=== PATIENT | female | born 1930 | race Caucasian/White ===

== ENCOUNTER 2018-10-16 05:17 | Inpatient (IN) ==
--- NOTE | 2018-10-14 17:29 | MH ---
cc: Kamron Peguero MD DATE OF ADMISSION: 10/16/2018 ADMITTING DIAGNOSIS: Osteoarthritis, left knee. COMORBIDITIES: Hypertension, elevated cholesterol, early stages of memory deficit and octogenarian. HISTORY OF PRESENT ILLNESS: The patient is an 88-year-old white female who has experienced at least 8 months of pain involving her left knee. She had noted the gradual onset of her symptoms as she was getting out of bed in anticipation of using the bathroom. There was no direct injury to her knee nor did she fall, but she remains symptomatic with pain, especially about the lateral aspect of her knee for which she was later seen by her primary care physician. At that time, she was encouraged to proceed with orthopedic evaluation and was subsequently seen by the undersigned physician in April of this past year. At that time, the patient described pain, especially related to weightbearing activities, but being reasonably comfortable with periods of rest. She had not experienced any previous history of problems involving her left knee. Her x-ray studies revealed no acute bony abnormality. The patient was diagnosed as having an iliotibial band syndrome for which she was treated with a local steroid injection and thereafter followed on an outpatient basis. She had initially noted some trend of improvement and elected to continue with her conservative modalities, but unfortunately experienced recurrent pain and swelling about the knee for which she again returned to her primary care physician, who again recommended orthopedic followup. At that time, the patient received an intraarticular steroid injection and continued to be followed on an outpatient basis. She described lingering pain thereafter that was interfering with all ambulatory activities, and thus, a recommendation was made to proceed with an MRI scan. Subsequent diagnostic testing in this regard identified severe osteochondral abnormalities of the lateral compartment including a large area of subchondral bony collapse with flattening of the contour of the subarticular bone and a full-thickness chondral loss as well as severe, associated subchondral bony edema of the lateral femoral condyle. There was a large area of full-thickness chondral defect of the lateral tibial condyle as well as a large complex tear involving the lateral meniscus. The above was associated with a large joint effusion, associated with a moderate-sized Patel's cyst. The patient had remained symptomatic with pain about her left knee and thus returned to the office in followup disposition, at which time the findings of the scan were reviewed and various treatment options discussed. The pros and cons of continued conservative management versus operative intervention that might involve arthroscopic surgery versus total knee arthroplasty were outlined in detail. The pluses and minuses of each surgical procedure was reviewed. Emphasis was made regarding the fact that the decision to proceed with surgery would be left entirely to the patient's discretion but it was the recommendation of the underlying physician that the patient would in all likelihood appreciate a more favorable long-term benefit from total knee replacement. The patient considered her options in this regard and subsequently returned to the office more recently, expressing her desire to proceed with total knee arthroplasty as discussed. In compliance with her wishes, she was scheduled for admission at this time in order that the above be accomplished. PAST MEDICAL HISTORY, HOSPITALIZATIONS AND SURGERIES: Acromioplasty of the right shoulder with mini open rotator cuff repair, skin grafting of her left lower extremity following a history of trauma, tonsillectomy and colonoscopy for history of rectal bleeding. The patient's medical illnesses include hypertension and elevated cholesterol, as well as early stages of memory loss. CURRENT MEDICATIONS: 1. Amlodipine 10-20 mg daily. 2. Celebrex 200 mg daily. 3. Diclofenac as an alternative to arthritic pain. 4. Flagyl 375 mg is recent treatment. 5. Fluocinolone cream for skin rash. 6. Ibuprofen 800 mg p.r.n. for back pain. 7. Memantine 10 mg twice daily. 8. Multivitamin tablet daily. 9. Simvastatin 20 mg daily. 10. Zofran 4 mg 3 times daily p.r.n. nausea. ALLERGIES: THE PATIENT DESCRIBES DRUG ALLERGIES TO DONEPEZIL AND OXYCODONE, BOTH OF WHICH HAVE BEEN ASSOCIATED WITH HALLUCINATIONS. SHE SUGGESTS THE POSSIBILITY OF TERRAMYCIN BEING ASSOCIATED WITH RASH FORMATION, BUT IS SOMEWHAT VAGUE IN THIS REGARD. SHE ALSO APPARENTLY HAS A DRUG ALLERGY TO MYCIN-TYPE DRUGS. REVIEW OF SYSTEMS: She wears glasses. No headache, seizure or syncope. No sinus congestion or epistaxis. Auditory acuity intact. No tinnitus. No bleeding gums or dysphagia. She has complete dentures. No cough, shortness of breath, upper respiratory infection, pneumonia, or tuberculosis. No angina or heart disease, medically managed for hypertension. Appetite good. Occasional constipation treated with wlby-xod-bbksacy products. No hepatitis. No gallbladder disease, ulcers or hemorrhoids. There is a history of rectal bleeding. No abnormality apparently identified. No urinary tract infection, no kidney stones, no history of fractures. No psychiatric intervention. Remaining review of systems is unremarkable and noncontributory. FAMILY HISTORY: The patient had been 24 years as a second marriage, but her recently at 89 years of age. She has 2 living daughters, both indicated to be in good health. One son at 54 years of age secondary to an abdominal aortic aneurysm. FAMILY HISTORY: Positive for heart disease and cancer of the throat. 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 She completed a BS degree. She denies active use of tobacco since 1975 but had been less than a 1 pack per day user for approximately 17 years prior to that time. Ethanol consumption in the form of 2 scotch cocktails nightly. PHYSICAL EXAMINATION: VITAL SIGNS: Height 5 feet 6-1/2 inches, weight 125 pounds. GENERAL: Alert, oriented, and responsive 88-year-old white female who sits quietly upon the examination table with no apparent distress. HEAD, EARS, EYES, NOSE AND THROAT: Pupils are equally round and reactive to light. Extraocular movements full. Sclerae are clear. External nares clear. External auditory canals clear. Edentulous. Mucous membranes pink and moist. Pharynx clear. NECK: Supple. Active range of motion. No associated pain. Carotid pulse is palpable bilaterally. Trachea midline. Thyroid without thyroid enlargement. LUNGS: Clear to auscultation and percussion. No CVA tenderness. No discomfort throughout the dorsolumbar spine. HEART: Regular rate and rhythm. No murmur or gallop. ABDOMEN: Soft, nontender, bowel sounds present. PELVIC: Per primary care physician. EXTREMITIES: Left knee, no obvious swelling, although there is a mild fullness consistent with thickened synovium. Lateral joint line tenderness without palpable deformity. Apprehension and compression sign negative. Limited mobility in the 100+ degree range of flexion with pain at the extreme of motion. No collateral ligamentous laxity. Tina test and drawer sign negative. Pivot shift and Sheldon sign positive for lateral compartment pain. Straight leg raising unremarkable at 80 degrees. Antalgic gait with walker support. NEUROLOGIC: Cranial nerves 2-12 grossly intact. IMPRESSION: Osteoarthritis, left knee. Comorbidities: Hypertension, early stages of memory loss, elevated cholesterol and octogenarian. PLAN: Left total knee arthroplasty: The nature of the planned surgical procedure, the potential complications and risks associated, the expectations of surgery and the consent form have been thoroughly reviewed with the patient in the presence of her daughter prior to admission to the hospital. America has indicated her full understanding regarding all of the above and given consent to proceed with treatment as outlined. Medical evaluation and clearance for surgery completed by her primary care physician, Dr. Alfonso Nice. MD VICKIE Estrada/rm , 04:40 PM , 04:57 PM
[2018-10-16] MEDS ORDERED: Sodium Chlor 0.9% Inj 500 ML IV.CONT ONE (06:30)
[2018-10-16] MEDS ORDERED: Chlorhexidine Gluconate 2% 1 Pack (2 Cloths) TOPICAL ONE (06:30)
[2018-10-16] MEDS ORDERED: Metoprolol Tartrate 25 MG Tablet PO ONE (06:30)
[2018-10-16] MEDS ORDERED: ceFAZolin 2 GM Premix Inj 2 GM/50 ML PIGGYBACK IV.SIG ONE (06:31)
[2018-10-16] MEDS ORDERED: Sugammadex Inj 200 MG/2 ML Vial IV.PUSH ONE (06:38)
[2018-10-16] MEDS ORDERED: Lidocaine PF 1% Inj 5 ML Vial ONE (06:45)
[2018-10-16] MEDS ORDERED: ceFAZolin 2 GM Premix Inj 2 GM/50 ML PIGGYBACK IV.SIG SCH (07:00)
[2018-10-16] MEDS ORDERED: TRANEXAMIC ACID IV.SIG SCH ×2 (07:00→10:00)
[2018-10-16] MEDS ORDERED: SODIUM CHLOR 0.9% IV.SIG SCH ×2 (07:00→10:00)
[2018-10-16] MEDS ORDERED: Sodium Chlor 0.9% Inj 50 ML, Bupivacaine Liposo PF 1.3% Inj 20 ML, Bupivacaine 0.25% In... P-ARTICULR SCH ×3 (07:00)
[2018-10-16] MEDS ORDERED: Phenylephrine/NS 1000 MCG/10ML Syringe IV.PUSH ONE (07:01)
[2018-10-16] MEDS ORDERED: Lidocaine PF 1% Inj 5 ML Syringe OTHER ONE (07:01)
[2018-10-16] MEDS ORDERED: fentaNYL Citrate Inj 100 MCG/2 ML Ampul ONE (09:31)
[2018-10-16] MEDS ORDERED: Zolpidem Tartrate 5 MG Tablet PO PRN (09:33)
[2018-10-16] MEDS ORDERED: Aluminum/Magnesium/Simethacone Susp 30 ML UDC PO PRN (09:33)
[2018-10-16] MEDS ORDERED: Naloxone Inj 0.4 MG/ML Vial IV.PUSH PRN (09:33)
[2018-10-16] MEDS ORDERED: Morphine Inj 4 MG/ML Vial IV.PUSH PRN (09:33)
[2018-10-16] MEDS ORDERED: Tranexamic Acid Inj 1,000 MG in Sodium Chlor 0.9% Inj 100 ML IV.SIG ONE (09:33)
[2018-10-16] MEDS ORDERED: Bisacodyl 10 MG Supp RECTAL PRN (09:33)
[2018-10-16] MEDS ORDERED: Morphine Inj 30 MG/30 ML PCA.VIAL PCA PRN (09:33)
[2018-10-16] MEDS ORDERED: Post-op Orders (for Pharmacy) OTHER STA (09:33)
[2018-10-16] MEDS ORDERED: Acetaminophen 325 MG Tablet PO PRN (09:33)
--- NOTE | 2018-10-16 09:36 | P.DCO ---
- Diagnosis (1) Degenerative joint disease of knee, left Status: Acute - Physical Therapy Order: Evaluate and treat, Improve ambulation, Strength and gait training - Home Health Nursing Order: Wound care and dressing changes, Nursing assessment with vital signs - Home Health Aide Order: To assist in: Bathing and personal care, manager aerospace and meal prep - Railroad Car Repairman Order: To evaluate: Living conditions/environment, Support services Order: To provide: Long range planning, Community services - Case Management Consult Case Management Consult-Home Health: Yes - Certification I have seen patient America Lincoln on 10/16/18. My clinical findings support the need for the requested home health care services because: Limited ability to care for self, High risk of falls I certify that my clinical findings support that this patient is homebound because: Post-op weakness, Unsteady gait/balance, Unsafe to leave home unassisted (1) Degenerative joint disease of knee, left Qualifiers: Osteoarthritis type: primary Qualified Code(s): M17.12 - Unilateral primary osteoarthritis, left knee
[2018-10-16] MEDS ORDERED: *morphine SULFATE 10 MG/ML PERIprocedure ONLY ONE ×3 (09:44→10:29)
--- NOTE | 2018-10-16 10:31 | MP ---
cc: Kamron Peguero MD DATE OF OPERATION: 10/16/2018 PREOPERATIVE DIAGNOSIS: Osteoarthritis of the left knee. POSTOPERATIVE DIAGNOSIS: Osteoarthritis of the left knee. PROCEDURE: Left total knee arthroplasty. SURGEON: Kamron Peguero MD. ANESTHESIA: General endotracheal. INDICATIONS: This is an 88-year-old white female with an 8-month history of progressive left knee pain. Had noted the gradual onset as consequence of getting out of bed in anticipation of using the bathroom and with a loading stress to her knee without any direct injury noted to have occurred. She became symptomatic with pain, especially about the lateral aspect of the knee for which she was later seen by her primary care physician. At that time, she was encouraged to proceed with orthopedic evaluation and was subsequently seen by the undersigned physician in April 2018. At that time, the patient described pain, especially related to weightbearing activities, being reasonably comfortable with periods of rest. She has not experienced any previous history of problems involving her left knee and her x-ray studies were without evidence of any acute bony abnormality. The patient was diagnosed as having an iliotibial band syndrome and was treated with local steroid injection while being followed on an outpatient basis. Initially, there was some trend of improvement and the patient elected to continue with her conservative modalities. Unfortunately, her pain recurred with associated swelling for which she again returned her primary care physician who recommended further orthopedic disposition. At that time, the patient received an intraarticular steroid injection and continued to be followed on an outpatient basis. Lingering pain was noted that interfered with all ambulatory activities and thus the patient subsequently underwent an MRI scan, the results of which identified severe osteochondral abnormalities of the lateral compartment including a large area of subchondral bony collapse with flattening of the contour of the subarticular bone and a full-thickness chondral loss as well as severe, associated subchondral bony edema of the lateral femoral condyle; a very large area of full-thickness chondral defect of the lateral tibial condyle as well as a large complex tear involving the lateral meniscus. Findings were associated with a large joint effusion and a moderate sized Patel's cyst. The patient remained symptomatic with pain about her left knee when she returned to the office in followup disposition. The findings of the scan were reviewed and treatment options discussed. The pros and cons of continuing with conservative management versus operative intervention that would involve arthroscopic surgery versus total knee arthroplasty were outlined in detail. The pluses and minuses of each procedure was reviewed. Emphasis was made regarding the fact that the decision to proceed with surgery would be left entirely to the patient's discretion. The patient considered her options in this regard and subsequent return to the office in followup disposition expressing her desire to proceed with total knee replacement, as had previously been discussed. In compliance with her wishes, she was scheduled for admission at this time in order that the above be accomplished. FORMAT: Following the induction of satisfactory general anesthesia by endotracheal intubation as completed per the Department of Anesthesia, a tourniquet was established around the proximal portion of the left lower extremity. The extremity proper was isolated with a U-drape, thereafter being prepped with Betadine solution and draped into a sterile field in the routine manner. Prior to initiation of the actual procedure, the standard timeout protocol was completed. All parameters to be appropriately addressed and confirmed by operating personnel. The extremity was elevated for approximately 1 minute and the tourniquet, thus inflated to 250 mmHg pressure. A sharp skin incision was initiated midline over the anterior aspect of the knee and developed through underlying subcutaneous tissue with hemostasis maintained by electrocautery. By deepening dissection, the anterior capsule was exposed. A medial capsulotomy completed and the patella subluxed in a lateral orientation. Examination of the joint space revealed severe degenerative erosion primarily involving the lateral compartment including both femoral condyle and tibial plateau with associated bony defects. Degenerative process extended in the patellofemoral articulation and mild involvement of the medial femoral condyle as well. There was a significant complex tear of the lateral meniscus. The articular surface of the patella was resected with power saw. The 3-hole guide utilized for establishing post-holes. Medial and lateral meniscus structures as well as the anterior cruciate ligament were sharply excised. A centering hole was placed in the distal aspect of the femur, allowing positioning of the intramedullary guide. The distal femoral cutting jig attached and the distal femur resected. AP measurement noted 62.5 mm sizing to be appropriate. The matching cutting block was positioned. Anterior, posterior and chamfer cuts were completed. Tibial plateau was subluxed in an anterior orientation allowing positioning of the extramedullary guide. The tibial plateau was resected and measured with 71 mm sizing and determined to be satisfactory. A trial reduction followed utilizing a 62.5 mm anatomic femoral component, a 71 mm tibial base with both 10 mm and 12 mm bearing inserts trialed. The 12 mm thickness was determined to be the more favorable fit. The knee was readily brought to full extension. There was no laxity with varus and valgus stress at both 0 and 90 degrees flexed posture. Orientation was confirmed as appropriate with measurement of the pelvic guide through the mechanical axis of the knee. A trial reduction followed utilizing a 31 mm standard 3 post-patellar button. Once again, good tracking noted with no tendency towards subluxation. All trial components being removed, the remaining portion of the proximal tibia was prepared for insertion of the permanent component. The joint space was thoroughly lavaged with pulsating antibiotic solution, hemostasis maintained by electrocautery. An autogenous bone plug was inserted into the distal femoral guide hole and thereafter a preparation of Biomet bone cement was utilized in inserting knee components in a sequential fashion, which included a 71 mm fixed cruciate tibial plate to which, a 12 mm Vanguard tibial bearing insert was secured with locking lehman. The 62.5 mm Vanguard femoral component was firmly seated onto the distal femur, excess cement being removed. The knee brought to full extension and thereafter, the 31 mm standard 3 post-patellar button was attached and maintained in place with patellar clamp while cement hardening was completed. Final range of motion assessment noted good tracking stability about the knee; irrigation repeated, hemostasis maintained. SureTrans drain tubes inserted through superior stab wounds. The capsule repaired with 0-Vicryl suture. The remaining portion of the wound was closed in layers in the routine manner, skin margins being reapproximated with a running subcuticular 3-0 Vicryl suture. An Exparel periarticular injection was completed, both pre and post-implant insertion. With dry sterile dressing in place, anesthesia was discontinued. The patient was transferred to a hospital bed and returned to the recovery room in satisfactory condition, having tolerated her operative procedure well. Estimated blood loss was approximately 50-75 mL per anesthesia. All implants were of the Biomet anime artist. MD VICKIE Estrada/javed , 09:23 AM , 09:37 AM
--- NOTE | 2018-10-16 11:06 | XR ---
EXAM DATE: 10/16/2018 10:53 AM EST AGE/SEX: 88 years / Female INDICATIONS: Post op total knee replacement. CLINICAL DATA: This is the patient's initial encounter. Patient reports that signs and symptoms have been present for 1 day and indicates a pain score of Nonresponsive. MEDICAL/SURGICAL HISTORY: Non-responsive. Non-responsive. COMPARISON: No prior exams available for comparison. FINDINGS: AP and lateral views of the knee were obtained and demonstrate that the patient is status post arthro plasty. The tibial and femoral components are intact and in normal alignment. There are postoperative changes involving the patella. There is anterior soft tissue swelling and gas. A surgical drain is n oted in place. There is mild osteopenia. CONCLUSION: Negative postoperative changes status post arthroplasty. Electronically signed by: Omer Cerna MD Board Certified Radiologist 10/16/2018 11:04 AM EST
[2018-10-16] MEDS: ceFAZolin Inj 1 GM in Sodium Chlor 0.9% Inj 100 ML IV.SIG SCH ×2 (15:07→21:04)
[2018-10-16] MEDS: Aspirin 325 MG Tablet PO SCH (21:23)
[2018-10-16] MEDS: Pantoprazole Sodium 20 MG DR Tablet PO SCH (21:24)
[2018-10-16] MEDS: Senna/Docusate Sodium 8.6/50 MG Tablet PO SCH (21:25)
[2018-10-16] MEDS: FLUOCINOLONE ACETONIDE 0.025% TOPICAL SCH (21:25)
[2018-10-17] MEDS: ceFAZolin Inj 1 GM in Sodium Chlor 0.9% Inj 100 ML IV.SIG SCH (03:30)
[2018-10-17 04:56] LABS: Hematocrit 28.4 % (35.0-46.0); Hemoglobin 9.8 gm/dL (11.6-15.3)
[2018-10-17] MEDS: Multivitamin/Minerals Therapeutic Tablet PO SCH (08:57)
[2018-10-17] MEDS: Aspirin 325 MG Tablet PO SCH ×2 (08:58→20:47)
[2018-10-17] MEDS: Docusate Sodium 100 MG Capsule PO SCH (08:58)
[2018-10-17] MEDS: Senna/Docusate Sodium 8.6/50 MG Tablet PO SCH ×2 (08:58→20:46)
[2018-10-17] MEDS: amLODIPine 10 MG Tablet PO SCH (08:59)
[2018-10-17] MEDS: FLUOCINOLONE ACETONIDE 0.025% TOPICAL SCH ×2 (09:00→21:43)
[2018-10-17] MEDS: Lisinopril 20 MG Tablet PO SCH (09:01)
--- NOTE | 2018-10-17 10:17 | P.CONIM ---
History of Present Illness Service: Hospitalist Consult date: 10/17/18 Requesting Physician: Kamron Peguero Reason for Consult: Medical management Primary Care Provider: Alfonso Nice MD Chief Complaint: Left knee pain History of Present Illness: Patient is an 88-year-old female who has a past medical history of arthritis, mild dementia, hypertension and hyperlipidemia who presents for left total knee replacement after failing conservative management as an outpatient. Patient is seen sitting up in chair. She tells me that she is feeling well and her pain is controlled. No fevers or chills. No chest pain or shortness of breath. She has been tolerating meals with no nausea or vomiting. Urinating frequently which is normal for her. No bowel movement yet. Review of Systems Review of Systems: all other systems reviewed are negative [facility] Medical History Medical History Arthritis (Acute) GERD (gastroesophageal reflux disease) (Acute) High cholesterol (Acute) Hypertension (Acute) Lymphoma, low grade (Acute) Wears glasses (Acute) Surgical History Surgical History H/O shoulder replacement (Acute) Status post cataract extraction of both eyes with insertion of intraocular lens (Acute) Social History Social History Substance History: No History of Abuse Second Hand Smoke Exposure: No Smoking Status: Former smoker Tobacco Type: Cigarettes How Often Do You Have a Drink Containing Alcohol: 2 to 3 times a week Recent Travel in [facility] within the Last 8 Weeks: No Recent Out of Country Travel within the Last 8 Weeks: No Immunization History Tetanus Immunization: Unable to Assess Hx Influenza Vaccine This Season: No Medications and Allergies Allergies Allergy/AdvReac Type Severity Reaction Status Date / Time adhesive tape Allergy Severe Rash Verified 10/16/18 05:48 erythromycin base Allergy Severe Rash Verified 10/16/18 05:48 donepezil AdvReac Hallucinati Verified 10/16/18 06:05 ons oxycodone AdvReac Hallucinati Verified 10/16/18 06:05 ons Home Medications Medication Instructions Recorded Confirmed Type amlodipine-benazepril 1 cap PO DAILY 10/03/18 10/16/18 History celecoxib 200 mg PO DAILY 10/03/18 10/16/18 History diclofenac sodium 2 g TOPICAL QID 10/03/18 10/16/18 History fluocinolone 1 applic TOPICAL BID 10/03/18 10/16/18 History ibuprofen 800 mg PO TID PRN 10/03/18 10/16/18 History lansoprazole 15 mg PO HS 10/03/18 10/16/18 History memantine 10 mg PO BID 10/03/18 10/16/18 History simvastatin 20 mg PO QPM 10/03/18 10/16/18 History Trish Aspirin 81 mg PO DAILY 10/16/18 10/16/18 History docusate sodium [Dulcolax Stool 100 mg PO DAILY 10/16/18 10/16/18 History Softener (dss)] [id number] K 1 tab PO DAILY 10/16/18 10/16/18 History [Adults Multivitamin] Active Medications: Active Medications Acetaminophen (Tylenol) 650 mg PO Q6H PRN PRN Reason: FEVER > 102 F Hydrocodone Bitart/Acetaminophen ([place] 5/325) 2 tab PO Q6H PRN PRN Reason: PAIN SCALE 5 TO 10 Hydrocodone Bitart/Acetaminophen ([place] 5/325) 1 tab PO Q4H PRN PRN Reason: PAIN LESS THAN 5 ON SCALE Last Admin: 10/17/18 06:10 Dose: 1 tab Al Hydrox/Mg Hydrox/Simethicone (Mag-Al Plus Susp Liq) 30 ml PO Q6H PRN PRN Reason: INDIGESTION Al Hydroxide/Mg Hydroxide (Milk Of Magnesia Liq) 30 ml PO BID PRN PRN Reason: Mild Constipation Amlodipine Besylate (Norvasc) 10 mg PO DAILY [facility] Last Admin: 10/17/18 08:59 Dose: 10 mg Aspirin (Aspirin) 325 mg PO BID [facility] Last Admin: 10/17/18 08:58 Dose: 325 mg Bisacodyl (Dulcolax Supp) 10 mg RECTAL DAILY PRN PRN Reason: SEVERE CONSITIPATION Docusate Sodium (Colace) 100 mg PO DAILY [facility] Last Admin: 10/17/18 08:58 Dose: 100 mg Fluocinolone Acetonide (Synalar 0.025% Cream) 1 applicatio TOPICAL BID [facility] Last Admin: 10/17/18 09:00 Dose: Not Given Lactated Ringer's (Lr 1000 Ml Inj) 1,000 mls @ 80 mls/hr IV.CONT .[id number] [facility] Last Infusion: 10/17/18 09:00 Dose: Infused Morphine Sulfate (Morphine Inj) 30 mg in 30 mls @ 0 mls/hr [employer] OFFICER UNSCH PRN PRN Reason: prn pain Last Admin: 10/16/18 10:07 Dose: 0 mls/hr Lactulose (Lactulose Liq) 30 ml PO DAILY PRN PRN Reason: SEVERE CONSITIPATION Lisinopril (Prinivil) 20 mg PO DAILY [facility] Last Admin: 10/17/18 09:01 Dose: 20 mg Memantine (Namenda) 10 mg PO BID [facility] Last Admin: 10/17/18 08:59 Dose: 10 mg Miscellaneous Information ([facility]) 0 each OTHER UNSCH PRN PRN Reason: SEE DOSE INSTRUCTIONS Morphine Sulfate (Morphine Inj) 2 mg IV.PUSH Q3H PRN PRN Reason: BREAKTHROUGH PAIN Multivitamins/Minerals (Theragran-M) 1 tab PO DAILY [facility] Last Admin: 10/17/18 08:57 Dose: 1 tab Naloxone HCl (Narcan Inj) 0.4 mg IV.PUSH PRN PRN PRN Reason: Resp rate < 10 Ondansetron HCl (Zofran Inj) 4 mg IV.PUSH Q6H PRN PRN Reason: NAUSEA OR VOMITING Last Admin: 10/16/18 15:07 Dose: 4 mg Pantoprazole Sodium (Protonix) 20 mg PO HS [facility] Last Admin: 10/16/18 21:24 Dose: 20 mg Povidone Iodine (Betadine 7.5% Scrub) 1 applicatio TOPICAL ONCE [facility] Stop: 10/20/18 06:59 Pravastatin Sodium (Pravachol) 40 mg PO QPM [facility] Last Admin: 10/16/18 21:03 Dose: Not Given Senna/Docusate Sodium (Myranda-Colace) 1 tab PO BID [facility] Last Admin: 10/17/18 08:58 Dose: 1 tab Sennosides (Senokot) 17.2 mg PO BID PRN PRN Reason: Moderate Constipation Sodium Chloride (Ns Flush) 2 ml IV.FLUSH BID [facility] Last Admin: 10/17/18 09:00 Dose: 2 ml Sodium Chloride (Ns Flush) 2 ml IV.FLUSH PRN PRN PRN Reason: FLUSH AFTER USING IV ACCESS Zolpidem Tartrate (Ambien) 5 mg PO HS PRN PRN Reason: INSOMNIA Physical Exam Vital signs: Vital Signs 10/16/18 10:30 10/16/18 10:37 10/16/18 10:45 Temperature Pulse Rate 91 H 85 Respiratory Rate 16 16 16 Blood Pressure 147/72 H 159/67 H Pulse Oximetry 99 99 10/16/18 11:00 10/16/18 11:15 10/16/18 11:28 Temperature Pulse Rate 87 86 Respiratory Rate 12 12 14 Blood Pressure 132/64 127/60 Pulse Oximetry 95 100 10/16/18 11:30 10/16/18 11:40 10/16/18 12:00 Temperature 97.1 F L Pulse Rate 89 87 87 Respiratory Rate 14 14 18 Blood Pressure 132/64 132/64 123/58 L Pulse Oximetry 97 98 100 10/16/18 16:00 10/16/18 20:05 10/17/18 01:05 Temperature 97.2 F L 97.3 F L 98.6 F Pulse Rate 76 84 95 H Respiratory Rate 18 18 18 Blood Pressure 110/53 L 125/59 L 136/64 Pulse Oximetry 96 96 97 10/17/18 05:05 Temperature 99.0 F Pulse Rate 93 H Respiratory Rate 18 Blood Pressure 149/65 H Pulse Oximetry 93 L Intake & Output 10/16/18 10/17/18 10/17/18 18:59 06:59 18:59 Intake Total 1325.2 / 1325.2 700 / 700 1000 / 1000 Output Total 50 / 50 125 / 125 Balance 1275.2 / 1275.2 575 / 575 1000 / 1000 Weight 56 kg Intake: IV 361.2 / 361.2 200 / 200 1000 / 1000 LR 1000 mL Inj 1,000 ML @ 80 1000 / 1000 mls/hr IV.CONT .[id number] [facility] Rx# :[id number] Cyklokapron Inj 560 MG In NS 211.2 / 211.2 Inj 100 ML @ 200 mls/hr IV.SIG ONCE [facility] Rx#:[id number] Ancef 2 GM Premix Inj 2 gm In 50 / 50 50 ml @ 100 mls/hr IV.SIG EXCHANGE TROUBLE SHOOTER NINO Rx#:[id number] Ancef Inj 1 GM In NS Inj 100 ML 100 / 100 200 / 200 @ 100 mls/hr IV.SIG Q6H [facility] Rx #:[id number] Oral 120 / 120 500 / 500 Anesthesia Amount 844 / 844 Output: Estimated Blood Loss 50 / 50 Wound Drainage 125 / 125 # 1 Left Knee 125 / 125 Other: # Voids 1 3 Date of Last Bowel Movement 10/15/18 # Bowel Movements 0 0 Narrative: GENERAL: Well-nourished, well-developed adult female in no obvious distress. SKIN: Warm and dry. HEAD: Atraumatic. Normocephalic. CARDIOVASCULAR: Regular rate and rhythm. RESPIRATORY: No accessory muscle use. Clear to auscultation. Breath sounds equal bilaterally. GASTROINTESTINAL: Abdomen soft, non-tender, non-distended. Positive bowel sounds. MUSCULOSKELETAL: Extremities without clubbing, cyanosis, or edema. Left knee with surgical dressing, drain and wrap in place. Toes warm and well-perfused bilaterally. NEUROLOGICAL: Awake and alert. No obvious cranial nerve deficits. Motor grossly within normal limits. Normal speech. Results Labs CBC & Chem 7: 10/17/18 04:39 Imaging Impressions Knee X-Ray 10/16/18 09:29 CONCLUSION: Negative postoperative changes status post arthroplasty. ABG Impressions Knee X-Ray 10/16/18 09:29 CONCLUSION: Negative postoperative changes status post arthroplasty. Assessment and Plan (1) Degenerative joint disease of knee, left: Code(s): M17.12 - Unilateral primary osteoarthritis, left knee Status: Acute Plan Patient is an 88-year-old female who has a past medical history of arthritis, mild dementia, hypertension and hyperlipidemia who presents for left total knee replacement after failing conservative management as an outpatient. 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 We appreciate the opportunity to assist you with the medical management of your patients. Patient appears to be medically stable at this time. Hospitalist service will sign off, please reconsult if needed. ATTENDING ATTESTATION: The exam, history, and the medical decision-making described in the above note were completed with the assistance of the mid-level provider. I reviewed and agree with the findings presented. I attest that I had a [id number] encounter with the patient on the same day, and personally performed and documented my assessment and findings w edits to above documentation as needed. Patient seen and examined she is mildy tachycardic but otherwise asymtomatic with acute drop in hh, continue to monitor HH and transfuse 1 u prbc if hbg less than 8, will add iron and mvi daily for now. Thanks. _ (1) Degenerative joint disease of knee, left Qualifiers: Osteoarthritis type: primary Qualified Code(s): M17.12 - Unilateral primary osteoarthritis, left knee
[2018-10-17] MEDS: Polysaccharide Iron Complex 150 MG Capsule PO SCH (20:45)
[2018-10-17] MEDS: Pantoprazole Sodium 20 MG DR Tablet PO SCH (20:47)
[2018-10-18 08:14] LABS: Baso # (Auto) 0.1 th/mm3 (0.0-0.2); Baso % (Auto) 0.5 % (0.0-2.0); Eos # (Auto) 0.3 th/mm3 (0.0-0.4); Eos % (Auto) 2.3 % (0.0-4.0); Hematocrit 29.6 % (35.0-46.0); Hemoglobin 10.2 gm/dL (11.6-15.3); Lymph # (Auto) 5.4 th/mm3 (1.0-4.8); Lymph % (Auto) 42.5 % (9.0-44.0); Mean Corpuscular HGB Conc 34.4 % (32.0-36.0); Mean Corpuscular Hemoglobin 33.6 pg (27.0-34.0); Mean Corpuscular Volume 97.8 fL (80.0-100.0); Mean Platelet Volume 8.5 fL (7.0-11.0); Mono # (Auto) 1.4 th/mm3 (0.0-0.9); Mono % (Auto) 11.4 % (0.0-8.0); Neut # (Auto) 5.5 th/mm3 (1.8-7.7); Neut % (Auto) 43.3 % (16.0-70.0); Platelet Count 202 th/mm3 (150-450); Red Blood Count 3.03 mil/mm3 (4.00-5.30); Red Cell Distribution Width 12.6 % (11.6-17.2); White Blood Count 12.6 th/mm3 (4.0-11.0)
[2018-10-18] MEDS: Multivitamin/Minerals Therapeutic Tablet PO SCH (08:14)
[2018-10-18] MEDS: Docusate Sodium 100 MG Capsule PO SCH (08:14)
[2018-10-18] MEDS: amLODIPine 10 MG Tablet PO SCH (08:14)
[2018-10-18] MEDS: Lisinopril 20 MG Tablet PO SCH (08:14)
[2018-10-18] MEDS: Aspirin 325 MG Tablet PO SCH ×2 (08:15→20:57)
[2018-10-18] MEDS: Senna/Docusate Sodium 8.6/50 MG Tablet PO SCH ×2 (08:15→21:00)
[2018-10-18] MEDS: Polysaccharide Iron Complex 150 MG Capsule PO SCH ×2 (08:15→20:56)
[2018-10-18] MEDS: FLUOCINOLONE ACETONIDE 0.025% TOPICAL SCH ×2 (08:18→23:06)
[2018-10-18 08:57] LABS: Eosinophils 6 % (0-4); Lymphocytes 41 % (9-44); Monocytes 5 % (0-8)
[2018-10-18 08:58] LABS: Platelet Estimate Normal (Normal); Platelet Morphology Normal (Normal); RBC Morphology Normal (Normal)
--- NOTE | 2018-10-18 10:17 | MD ---
cc: Kamron Peguero MD, George DATE OF DISCHARGE: 10/18/2018 ADMITTING DIAGNOSIS: Osteoarthritis, left knee. DISCHARGE DIAGNOSIS: Osteoarthritis, left knee. COMORBIDITIES: Hypertension, elevated cholesterol, early stages of memory deficit, and octogenarian. HISTORY: The patient is an 88-year-old white female has had an 8-month history of progressive left knee pain as related to arthritic condition. She had sustained a loading stress to her left knee with the onset of her discomfort unrelated to any specific injury directly to the knee joint. She had undergone previous orthopedic evaluation, at which time she was treated conservatively. Her x-ray studies did reveal the absence of any acute bony abnormality. She was initially diagnosed as having an iliotibial band syndrome and was treated with local cortisone injection while being followed on an outpatient basis. Initially, there was some trend of improvement, but her symptoms gradually recurred; and in followup disposition, recommendation was made to undergo an MRI scan. Findings of the study did identify severe osteochondral abnormalities of the lateral compartment including a large area of some full-thickness chondral loss as well as severe associated subchondral bony edema of the lateral femoral condyle. There was a large area of full-thickness chondral defect of the lateral tibial condyle as well and a large complex tear involving the lateral meniscus. These findings were associated with a large joint effusion and a moderate sized Patel cyst. The patient returned to the office, at which time the findings of the scan were reviewed and treatment options discussed. The pros and cons of continued conservative management versus operative intervention that would involve arthroscopic surgery versus total knee arthroplasty were outlined. The pluses and minuses of each procedure was reviewed. The patient considered her options in this regard and subsequently expressed her desire to proceed with knee replacement surgery for which she was scheduled for admission at this time. For additional details with regard to the patient's pertinent history, interested parties would be directed to her admitting documentation involving her history and physical examination. PHYSICAL EXAMINATION: Her physical examination at the time of admission revealed no obvious swelling. There was a mild fullness consistent with thickened synovium. Lateral joint line tenderness, without palpable deformity. Apprehension and compression sign negative. Limited mobility and 100+ degree range of flexion with pain at the extreme of motion. No collateral ligamentous laxity. Tina test and drawer sign negative. Pivot shift and Sheldon sign positive for lateral compartment pain. Straight-leg raising unremarkable at 80 degrees. Antalgic gait with walker support. HOSPITAL COURSE: Prior to admission to the hospital, the patient had undergone medical evaluation and clearance for surgery as completed by her primary care physician, Dr. Alfonso Nice. She was taken to the operating room on 10/16/2018, and on that date underwent a left total knee arthroplasty completed in an uncomplicated manner. The patient was noted to have tolerated her operative procedure well. Hemoglobin and hematocrit assessment postoperatively was 9.8 and 28.4 respectively. The patient was progressively mobilized under the guidance of physical therapy being permitted weightbearing to tolerance about the left lower extremity. Followup examination of her surgical wound noted to be intact, healing favorably with no evidence of infection. Medical followup per the hospitalist service. DVT prophylaxis initiated. Curam Developer consulted to assist with discharge planning. Family had given her consent for rehab placement upon discharge from the hospital. Plans were finalized in this regard; and pending medical clearance, she was scheduled for transfer on the second postoperative day, at which time she was making favorable progress with regard to her initial rehabilitation program. She was scheduled to be seen in office followup in approximately 4 weeks. CONDITION AT THE TIME OF DISCHARGE: Stable. PROGNOSIS: Favorable. DISCHARGE MEDICATIONS: Included Tramadol 50 mg, #30. Aspirin 325 mg 1 tab twice daily for 3 weeks, #40. MD VICKIE Estrada/james , 06:32 AM , 06:40 AM
[2018-10-18] MEDS: Pantoprazole Sodium 20 MG DR Tablet PO SCH (20:56)
[2018-10-19] MEDS: amLODIPine 10 MG Tablet PO SCH (09:39)
[2018-10-19] MEDS: Aspirin 325 MG Tablet PO SCH (09:39)
[2018-10-19] MEDS: Multivitamin/Minerals Therapeutic Tablet PO SCH (09:39)
[2018-10-19] MEDS: Lisinopril 20 MG Tablet PO SCH (09:39)
[2018-10-19] MEDS: Docusate Sodium 100 MG Capsule PO SCH (09:40)
[2018-10-19] MEDS: Senna/Docusate Sodium 8.6/50 MG Tablet PO SCH (09:40)
[2018-10-19] MEDS: Polysaccharide Iron Complex 150 MG Capsule PO SCH (09:40)
[2018-10-19] MEDS: FLUOCINOLONE ACETONIDE 0.025% TOPICAL SCH (09:41)
--- NOTE | 2018-10-19 15:30 | P.PNOP ---
Subjective Interval history: Postop day #3 She is doing relatively well. She has minimal complaints related to her knee at this time. She is ready to go to a alf facility. She indicates that the pain medication she is getting here is working well. She does not know what tramadol is. She is requesting continuing her Benadryl at night. Physical therapy reports that the ambulation distance was 44 feet. The range of motion was 0 degrees of extension to 85 degrees of flexion. Physical Exam Vital signs: Vital Signs 10/18/18 17:22 10/18/18 19:31 10/18/18 23:01 Temperature 98.3 F 97.9 F 98.2 F Pulse Rate 85 86 85 Respiratory Rate 18 17 17 Blood Pressure 147/67 H 118/55 L 129/57 L Pulse Oximetry 96 92 L 92 L 10/19/18 08:05 10/19/18 09:39 10/19/18 13:13 Temperature 98.1 F 98.2 F Pulse Rate 85 91 H Respiratory Rate 18 18 18 Blood Pressure 128/63 145/65 H Pulse Oximetry 93 L 96 Intake & Output 10/18/18 10/19/18 10/19/18 18:59 06:59 18:59 Intake Total 600 / 600 480 / 480 480 / 480 Balance 600 / 600 480 / 480 480 / 480 Weight 56 kg Intake: Oral 600 / 600 480 / 480 480 / 480 Other: # Voids 3 4 Date of Last Bowel Movement 10/18/18 10/18/18 10/18/18 # Bowel Movements 0 Narrative: She is resting comfortably, supine in bed. The dressing is dry and intact. Her neurovascular status is intact. Her daughter is at the bedside. Results - Labs CBC & Chem 7: 10/18/18 07:33 Assessment and Plan - Ortho Post Op Day # 3 - Assessment and Plan Condition: Good. Orthopedically stable. DVT prophylaxis: TEDs, aspirin, sequentials. Discharge plans: A alf facility per Dr. Peguero. Prescriptions: [place] 5/3 2 5; Patient is having significant pain caused by total knee arthroplasty which will last more than 3 days. Trial of Tylenol has not helped. I believe that it is medically necessary to treat patients pain because it is affecting patients ability to participate in postoperative rehabilitation and perform activities of daily living in a comfortable and efficient manner. I have checked the [facility] database prior to completing the prescription.
== END 2018-10-19 17:21 | DRG 470 ==
LOC: HSDI 05:17 → N06 12:06
PROVIDERS: ADMIT Orthopaedic Surgery; ATTEND Orthopaedic Surgery
CPT/HCPCS: 73560; 85014; 85018; 85025; 86850; 86891; 86900; 86901; 88305; 88311; 94150; 97110; 97116; 97150; 97163; 97530; C1776; C9290; J0131; J0690; J1100; J1580; J2250; J2270; J2370; J2405; J2704; J3010; J7120